=== PATIENT | male | born 1950 | race Hispanic/Latino ===

== ENCOUNTER → 2018-02-19 | Outpatient (CLI) | payer MEDICARE ==
[~2018-02-19] MED LIST: CIALIS5 MG PO; LISINOPRIL10 MG PO; OMEPRAZOLE40 MG PO; TAMSULOSIN HCL0.4 MG PO; ULTRAM50 MG PO
== END ==
LOC: SLEEP 20:21
PROVIDERS: ATTEND Internal Medicine
DX: G47.33 Obstructive sleep apnea (adult) (pediatric) (principal)
CPT/HCPCS: 95810

== ENCOUNTER → 2018-03-27 | Outpatient (CLI) | payer OTHER, MEDICARE | LOC: SLEEP 19:45 | PROVIDERS: ATTEND Internal Medicine | DX: G47.33 Obstructive sleep apnea (adult) (pediatric) (principal) | CPT/HCPCS: 95811 ==